=== PATIENT | female | born 1950 | race Caucasian/White ===

== ENCOUNTER 2016-06-30 10:05 | Outpatient (CLI) | payer BC ==
[2016-06-30] MEDS ORDERED: IOPAMIDOL-300 100 ML VIAL IVP ONE (12:12)
== END 2016-06-30 10:06 | disposition home or self-care (01) ==
DX: R31.9 Hematuria, unspecified (principal); Z01.812 Encounter for preprocedural laboratory examination; Z79.899 Other long term (current) drug therapy
CPT/HCPCS: 36415; 74178; 82565; Q9967

== ENCOUNTER 2016-06-30 10:14 | Outpatient (CLI) | payer BC | END 2016-06-30 10:15 | disposition home or self-care (01) | DX: Z01.812 Encounter for preprocedural laboratory examination (principal); Z79.899 Other long term (current) drug therapy ==

== ENCOUNTER 2016-09-16 13:05 | Outpatient (CLI) | payer BC | END 2016-09-16 13:06 | disposition home or self-care (01) | DX: R31.9 Hematuria, unspecified (principal) ==

== ENCOUNTER 2017-06-30 10:44 | Outpatient (CLI) | payer MEDICARE, OTHER | END 2017-06-30 10:45 | LOC: LAB.R 10:44 | PROVIDERS: ATTEND Internal Medicine | DX: N30.00 Acute cystitis without hematuria (principal) | CPT/HCPCS: 87086 ==

== ENCOUNTER 2017-07-29 14:27 | Emergency (ER) | payer MEDICARE, OTHER ==
[2017-07-29 14:40] VITALS: BP 157/114
[2017-07-29] MEDS ORDERED: HYDROmorphone 1 MG/ML SYRINGE IM STA ×2 (14:40→15:48)
--- NOTE | 2017-07-29 14:42 | ED Physician Documentation ---
PD HPI UPPER EXT INJURY - Stated complaint Stated Complaint: GLF/L SHOULDER PX - Chief complaint Chief Complaint: Ext Problem - History obtained from History obtained from: Patient, Family - History of Present Illness Location: Other (She tripped over her 's oxygen tubing and fell onto her left side, the major site of pain is her left upper humerus, she has chronic neck and back pain in the neck hurts slightly more than normal. No other injuries. No head injury.) Review of Systems Constitutional: denies: Fever, Chills Respiratory: denies: Dyspnea, Cough GI: denies: Abdominal Pain, Nausea, Vomiting PD PAST MEDICAL HISTORY - Past Medical History Cardiovascular: Hypertension Neuro: None Psych: Anxiety Musculoskeletal: Osteoarthritis, Osteoporosis, Osteopenia - Past Surgical History Ortho: Spine surgery Neuro: Other - Present Medications Home Medications: Ambulatory Orders Medication Instructions Recorded Confirmed Clonidine HCl [Clonidine HCl ER] 07/29/17 Hydrocodone/Acetaminophen 1 each PO Q4H PRN #20 tablet 07/29/17 [Hydrocodon-Acetaminophn 10-325] Hydrocodone/Acetaminophen [Vicodin 1 tab PO TID 07/29/17 07/29/17 5-300 mg Tablet] Levothyroxine Sodium 100 mcg PO DAILY 07/29/17 07/29/17 Lisinopril 10 mg PO BID 07/29/17 07/29/17 Methocarbamol [Robaxin-750] 1,500 mg PO BID 07/29/17 07/29/17 Metoprolol Succinate 07/29/17 Pravastatin Sodium 0 07/29/17 Trazodone HCl 150 mg PO DAILY PM 07/29/17 07/29/17 diazePAM [Valium] 5 mg PO TID 07/29/17 07/29/17 - Allergies Allergies/Adverse Reactions: Allergies Allergy/AdvReac Type Severity Reaction Status Date / Time gabapentin Allergy Unknown Verified 07/29/17 14:41 pregabalin [From Lyrica] Allergy Unknown Verified 07/29/17 14:41 quetiapine [From Seroquel] Allergy Unknown Verified 07/29/17 14:41 Sulfa (Sulfonamide Allergy Anaphylaxis Verified 07/29/17 14:40 Antibiotics) tramadol Allergy Unknown Verified 07/29/17 14:41 PD ED PE NORMAL - Vitals Vital signs reviewed: Yes - General General: Alert and oriented X 3, No acute distress - HEENT HEENT: PERRL, EOMI - Neck Neck: No bony TTP, Other (Decreased range of motion, but she says this is chronic because of prior neck fusion.) - Cardiac Cardiac: RRR, No murmur - Extremities Extremities: Other (Very tender to the left upper humerus and unable to range it at all, and in the left hand, the remainder of her extremities are palpated and nontender. Good range of motion of the left hip.) - Neuro Neuro: Alert and oriented X 3, Normal speech - Psych Psych: Normal mood, Normal affect Results - Vitals Vitals: Vital Signs - 24 hr 07/29/17 14:34 Temperature 36.5 C Heart Rate 62 Respiratory 18 Rate Blood Pressure 157/114 H O2 Saturation 100 Oxygen O2 Source Room air - Rads (name of study) L humerus Radiology: EMP read contemporaneously (unclear, poss frx, rec formal 3v shoulder ) C spine Radiology: EMP read contemporaneously (NAD) L shoulder Radiology: EMP read contemporaneously (prox humeral frx) Departure - Departure Disposition: 01 Home, Self Care Clinical Impression: Left humeral fracture Qualifiers: Encounter type: initial encounter Humerus Location: proximal Fracture type: closed Fracture morphology: unspecified fracture morphology Qualified Code(s): S42.202A - Unspecified fracture of upper end of left humerus, initial encounter for closed fracture Condition: Good Record reviewed to determine appropriate education?: Yes Instructions: ED Fx Upper Ext Follow-Up: [facility] [Provider Group] - Within 1 week Prescriptions: Hydrocodone/Acetaminophen [Hydrocodon-Acetaminophn 10-325] 1 each PO Q4H PRN # 20 tablet PRN Reason: Pain Comments: Your blood pressure was elevated today on check into the emergency department. This does not mean that you have hypertension, it is a common phenomenon to come to the emergency department and have elevated blood pressure. I recommend that you see your primary care physician within the week to have it rechecked when you are feeling better. Discharge Date/Time: 07/29/17 17:27
--- NOTE | 2017-07-29 15:42 | XRAY Report ---
EXAM: LEFT HUMERUS RADIOGRAPHY EXAM DATE: 07/29/2017 03:22 PM. CLINICAL HISTORY: Fall arm pain. COMPARISON: None. TECHNIQUE: 2 views. FINDINGS: Bones: Bones are demineralized. At the lateral aspect of the humeral head, there is a vertical lucenc y which could be overlap, however acute fracture is not excluded. A dedicated left shoulder x-ray cou ld be obtained to further evaluate. Otherwise, no evidence for acute fracture. Joints: No dislocation. Soft Tissues: Unremarkable. IMPRESSION: At the lateral aspect of the humeral head, there is a vertical lucency which could be ove rlap, however acute fracture is not excluded. A dedicated left shoulder x-ray could be obtained to fu rther evaluate. Otherwise, no evidence for acute fracture. [facility] Referring Provider Line: [phone] SITE ID: [id number]
--- NOTE | 2017-07-29 15:47 | XRAY Preliminary Report ---
Exam: XR CERVICAL SPINE 2 VIEW IMPRESSION: 1. No evidence for acute fracture. 2. Cervical spine fusion and degenerative changes as above. [facility] SITE ID: [id number]
--- NOTE | 2017-07-29 15:47 | XRAY Report ---
EXAM: CERVICAL SPINE RADIOGRAPHY EXAM DATE: 07/29/2017 03:22 PM. CLINICAL HISTORY: Fall neck pain. COMPARISONS: Cervical spine 05/06/2007. TECHNIQUE: 3 views. FINDINGS: Alignment: Normal. No spondylolisthesis or scoliosis. Bones: The cervical vertebral bodies and posterior elements are well visualized from the skull base t hrough C7-T1. No evidence for acute fracture. Disks: Osseous fusion of the vertebral bodies from C3-C6. Anterior plate and screws at C3-C5. Moderate degenerative disk disease with disk height loss and osteophytes at C6-C7. Facets: Mild diffuse bilateral facet arthropathy. Soft Tissues: Normal. No prevertebral soft tissue swelling. The visualized lung apices are clear. IMPRESSION: 1. No evidence for acute fracture. 2. Cervical spine fusion and degenerative changes as above. [facility] Referring Provider Line: [phone] SITE ID: [id number]
--- NOTE | 2017-07-29 17:01 | XRAY Preliminary Report ---
Exam: XR SHOULDER 3 VIEW LT IMPRESSION: Left humeral head and neck fracture. [facility] SITE ID: [id number]
--- NOTE | 2017-07-29 17:05 | XRAY Report ---
EXAM: LEFT SHOULDER RADIOGRAPHY EXAM DATE: 07/29/2017 04:22 PM. CLINICAL HISTORY: Pain after fall. Equivocal lucency through the lateral aspect of the humeral head o n the earlier dedicated left humerus study. COMPARISON: None. TECHNIQUE: 3 views. FINDINGS: Bones: Osteopenia. Acute comminuted predominantly nondisplaced fracture not only involving the left greater tuberosity b ut also the posterior aspect of the left humeral head and neck with 3 mm offset of the cortex at the head neck junction. Suspect hairline transverse fracture extending through the entirety of the mann l neck. Joints: The glenohumeral and acromioclavicular joints are normal. Soft tissues: The visualized hemithorax is unremarkable. No soft tissue swelling. IMPRESSION: Left humeral head and neck fracture. [facility] Referring Provider Line: [phone] SITE ID: [id number]
== END 2017-07-29 17:27 | disposition home or self-care (01) ==
LOC: ED 14:27
DX: S42.295A Other nondisplaced fracture of upper end of left humerus, initial encounter for closed fracture (principal); W01.0XXA Fall on same level from slipping, tripping and stumbling without subsequent striking against object, initial encounter; Y92.019 Unspecified place in single-family (private) house as the place of occurrence of the external cause; I10 Essential (primary) hypertension; M19.90 Unspecified osteoarthritis, unspecified site; M81.0 Age-related osteoporosis without current pathological fracture
CPT/HCPCS: 72040; 73030; 73060; 96372; 99283; 99284; J1170

== ENCOUNTER 2017-09-30 12:03 | Outpatient (CLI) | payer MEDICARE, OTHER ==
[2017-09-30 12:21] LABS: BASOPHILS % (AUTO) 0.6 %; EOSINOPHILS # (AUTO) 0.1 10^3/uL (0.0-0.7); EOSINOPHILS % (AUTO) 1.2 %; LYMPHOCYTES # (AUTO) 1.1 10^3/uL (1.5-3.5); LYMPHOCYTES % (AUTO) 19.1 %; MEAN CORPUSCULAR HEMOGLOBIN 32.6 pg (27.0-31.0); MEAN CORPUSCULAR HGB CONC 34.2 g/dL (32.0-36.0); MEAN CORPUSCULAR VOLUME 95.2 fL (81.0-99.0); MEAN PLATELET VOLUME 9.6 fL (7.9-10.8); MONOCYTES # (AUTO) 0.5 10^3/uL (0.0-1.0); MONOCYTES % (AUTO) 8.6 %; NEUTROPHILS # (AUTO) 3.9 10^3/uL (1.5-6.6); NEUTROPHILS % (AUTO) 70.5 %; PLT - PLATELET COUNT 103 10^3/uL (130-450); RED BLOOD COUNT 4.28 10^6/uL (4.20-5.40); RED CELL DISTRIBUTION WIDTH 13.2 % (12.0-15.0); WHITE BLOOD COUNT 5.6 x10^3/uL (4.8-10.8)
[2017-09-30 12:42] LABS: ALBUMIN 4.6 g/dL (3.2-5.5); ALBUMIN/GLOBULIN RATIO 1.7 (1.0-2.2); ALKALINE PHOSPHATASE 50 IU/L (42-121); ALT ALANINE AMINOTRANSFERASE 11 IU/L (10-60); AST ASPARTATE AMINOTRANSFERASE 19 IU/L (10-42); BILIRUBIN,TOTAL 1.1 mg/dL (0.2-1.0); BUN - BLOOD UREA NITROGEN 9 mg/dL (6-20); CALCIUM 9.2 mg/dL (8.5-10.3); CARBON DIOXIDE - CO2 32 mmol/L (21-32); CHLORIDE 95 mmol/L (101-111); CHOL/HDL RATIO 2.7 (<4.4); CHOLESTEROL 160 mg/dL; CREATININE 0.5 mg/dL (0.4-1.0); GFR - MDRD 124 (>89); GLUCOSE 121 mg/dL (70-100); HDL CHOLESTEROL 60 mg/dL; LDL CHOLESTEROL,CALCULATED 87 mg/dL; LDL/HDL RATIO 1.5 (<4.4); SODIUM 133 mmol/L (135-145); TOTAL PROTEIN 7.3 g/dL (6.7-8.2); VLDL CHOLESTEROL 13 mg/dL
[2017-10-01 09:18] LABS: HB2 TOTAL 15.5 g/dL; HEMOGLOBIN A1C 0.53 g/dL; HEMOGLOBIN A1C % 5.3 % (4.6-6.2)
== END 2017-09-30 12:04 | disposition home or self-care (01) ==
LOC: LAB 12:03
PROVIDERS: ATTEND Internal Medicine
DX: I10 Essential (primary) hypertension (principal); Z79.899 Other long term (current) drug therapy; R73.9 Hyperglycemia, unspecified; E78.5 Hyperlipidemia, unspecified; R63.4 Abnormal weight loss
CPT/HCPCS: 36415; 80053; 80061; 83036; 83721; 84443; 85025

== ENCOUNTER 2017-10-14 10:45 | Outpatient (CLI) | payer MEDICARE, OTHER ==
--- NOTE | 2017-10-14 14:35 | CT Report ---
CT CHEST FOR LUNG CANCER SCREENIN10/14/2017 CLINICAL INDICATION: A 66-year-old asymptomatic patient with [id number] history of smoking, current smoker for screening. TECHNIQUE: Axial CT images of the chest were obtained without intravenous contrast, using low dose screening technique. COMPARISON: No previous CT is available for comparison. FINDINGS: The heart and great vessels demonstrate mild atherosclerotic calcification. No hilar or mediastinal lymphadenopathy is present. The lungs are clear. No effusion or pneumothorax is present. Osseous structures demonstrate degenerative changes. Limited evaluation of upper abdominal structures demonstrates normal adrenal glands. IMPRESSION: NEGATIVE EXAMINATION. RECOMMENDATION: Continue routine annual screening with low dose CT in 12 months. LUNG RADS CATEGORY 1-NEGATIVE. CT DOSE REDUCTION STATEMENT In accordance with CT protocol optimization, one or more of the following dose reduction techniques were utilized for this exam: automated exposure control, adjustment of mA and/or KV based on patient size, or use of iterative reconstructive technique. TD: 10/14/2017 14:34
== END 2017-10-14 10:46 | disposition home or self-care (01) ==
LOC: DI 10:45
PROVIDERS: ATTEND Internal Medicine
DX: Z00.8 Encounter for other general examination (principal); Z87.891 Personal history of nicotine dependence

== ENCOUNTER 2018-11-16 12:47 | Outpatient (CLI) | payer MEDICARE, OTHER ==
[2018-11-16 13:14] LABS: BASOPHILS % (AUTO) 0.4 %; EOSINOPHILS % (AUTO) 0.2 %; HGB - HEMOGLOBIN 13.3 g/dL (12.0-16.0); LYMPHOCYTES # (AUTO) 0.6 10^3/uL (1.5-3.5); LYMPHOCYTES % (AUTO) 6.1 %; MEAN CORPUSCULAR HEMOGLOBIN 32.2 pg (27.0-31.0); MEAN CORPUSCULAR HGB CONC 34.3 g/dL (32.0-36.0); MEAN CORPUSCULAR VOLUME 93.8 fL (81.0-99.0); MEAN PLATELET VOLUME 9.7 fL (7.9-10.8); MONOCYTES # (AUTO) 0.4 10^3/uL (0.0-1.0); MONOCYTES % (AUTO) 4.3 %; NEUTROPHILS # (AUTO) 8.9 10^3/uL (1.5-6.6); PLT - PLATELET COUNT 119 10^3/uL (130-450); RED BLOOD COUNT 4.13 10^6/uL (4.20-5.40); RED CELL DISTRIBUTION WIDTH 13.5 % (12.0-15.0)
[2018-11-16 13:29] LABS: CALCIUM 9.2 mg/dL (8.5-10.3); CARBON DIOXIDE - CO2 29 mmol/L (21-32); CHLORIDE 93 mmol/L (101-111); GLUCOSE 146 mg/dL (70-100); SODIUM 132 mmol/L (135-145)
[2018-11-16 13:55] LABS: THYROID STIMULATING HORMONE 0.3 uIU/mL (0.34-5.60)
[2018-11-16 13:57] LABS: FREE T4 (FREE THYROXINE) 1.26 ng/dL (0.58-1.64)
[2018-11-16 14:09] LABS: ALBUMIN 4.5 g/dL (3.2-5.5); ALBUMIN/GLOBULIN RATIO 1.5 (1.0-2.2); ALKALINE PHOSPHATASE 56 IU/L (42-121); ALT ALANINE AMINOTRANSFERASE 14 IU/L (10-60); AST ASPARTATE AMINOTRANSFERASE 27 IU/L (10-42); BILIRUBIN,TOTAL 1.1 mg/dL (0.2-1.0); BUN - BLOOD UREA NITROGEN 10 mg/dL (6-20); CHOL/HDL RATIO 2.5 (<4.4); CHOLESTEROL 152 mg/dL; CREATININE 0.6 mg/dL (0.4-1.0); GFR - MDRD 100 (>89); HDL CHOLESTEROL 61 mg/dL; LDL CHOLESTEROL,CALCULATED 75 mg/dL; LDL/HDL RATIO 1.2 (<4.4); TOTAL PROTEIN 7.6 g/dL (6.7-8.2); VLDL CHOLESTEROL 16 mg/dL
== END 2018-11-16 12:48 | disposition home or self-care (01) ==
LOC: LAB 12:47
PROVIDERS: ATTEND Family Medicine
DX: E03.9 Hypothyroidism, unspecified (principal); J38.00 Paralysis of vocal cords and larynx, unspecified; M54.5 Low back pain; I10 Essential (primary) hypertension
CPT/HCPCS: 36415; 80053; 80061; 83721; 84439; 84443; 84481; 85025

== ENCOUNTER 2019-06-29 10:48 | Outpatient (CLI) | payer MEDICARE, OTHER ==
[2019-06-29 11:18] LABS: BASOPHILS % (AUTO) 0.3 %; EOSINOPHILS # (AUTO) 0.1 10^3/uL (0.0-0.7); EOSINOPHILS % (AUTO) 0.7 %; HGB - HEMOGLOBIN 11.4 g/dL (12.0-16.0); LYMPHOCYTES # (AUTO) 0.7 10^3/uL (1.5-3.5); LYMPHOCYTES % (AUTO) 9.1 %; MEAN CORPUSCULAR HEMOGLOBIN 32.9 pg (27.0-31.0); MEAN CORPUSCULAR HGB CONC 32.9 g/dL (32.0-36.0); MEAN CORPUSCULAR VOLUME 99.7 fL (81.0-99.0); MEAN PLATELET VOLUME 10.7 fL (7.9-10.8); MONOCYTES # (AUTO) 0.4 10^3/uL (0.0-1.0); MONOCYTES % (AUTO) 5.7 %; NEUTROPHILS % (AUTO) 83.9 %; PLT - PLATELET COUNT 162 10^3/uL (130-450); RED BLOOD COUNT 3.47 10^6/uL (4.20-5.40); RED CELL DISTRIBUTION WIDTH 14.1 % (12.0-15.0); WHITE BLOOD COUNT 7.2 x10^3/uL (4.8-10.8)
[2019-06-29 11:48] LABS: ALBUMIN 4.5 g/dL (3.2-5.5); BILIRUBIN,TOTAL 1.2 mg/dL (0.2-1.0); CALCIUM 8.6 mg/dL (8.5-10.3); CREATININE 0.6 mg/dL (0.4-1.0); TOTAL PROTEIN 6.8 g/dL (6.7-8.2)
[2019-06-29 12:03] LABS: THYROID STIMULATING HORMONE 1.26 uIU/mL (0.34-5.60)
[2019-06-29 12:04] LABS: FREE T4 (FREE THYROXINE) 1.09 ng/dL (0.58-1.64)
== END 2019-06-29 10:49 | disposition home or self-care (01) ==
LOC: LAB 10:48
PROVIDERS: ATTEND Family Medicine
DX: I10 Essential (primary) hypertension (principal); F43.21 Adjustment disorder with depressed mood; E43 Unspecified severe protein-calorie malnutrition; E03.9 Hypothyroidism, unspecified
CPT/HCPCS: 36415; 80053; 84439; 84443; 84481; 85025

== ENCOUNTER 2019-08-16 15:16 | Outpatient (CLI) | payer MEDICARE, OTHER ==
--- NOTE | 2019-08-17 11:55 | XRAY Report ---
Reason: SHOULDER PAIN RIGHT, FREQUENT FALLS Procedure Date: 08/16/2019 Accession Number: [id number] / [id number] Procedure: XR - Shoulder 3 View RT CPT Code: Final Report FULL RESULT: EXAM: RIGHT SHOULDER RADIOGRAPHY EXAM DATE: 08/16/2019 03:36 PM. CLINICAL HISTORY: SHOULDER PAIN RIGHT, FREQUENT FALLS. COMPARISON: None. TECHNIQUE: 3 views. FINDINGS: Bones: Decreased bone mineralization. No fracture. No focal bone lesion. Joints: Glenohumeral and acromioclavicular joints are intact. No joint effusion. No subluxation. Soft tissues: Curvilinear dense ossification superior to the proximal right humeral greater trochanter measuring 1.4 x 0.7 cm in diameter, compatible with ossification in the fibers of the rotator cuff. IMPRESSION: 1. Right rotator cuff calcific tendinopathy. 2. Decreased bone mineralization. 3. The remainder of the right shoulder radiography is unremarkable. [facility]
== END 2019-08-16 15:17 | disposition home or self-care (01) ==
LOC: DI 15:16
PROVIDERS: ATTEND Family Medicine
DX: M67.911 Unspecified disorder of synovium and tendon, right shoulder (principal); R29.6 Repeated falls